=== PATIENT | male | born 1990 | race American Indian/Alaskan Native ===

== ENCOUNTER 2020-11-01 07:50 | Emergency (ER) | payer MEDICAID ==
--- NOTE | 2020-11-01 07:54 | Event Note ---
ED Screening Note Date of service: 11/01/20 Time: 07:53 ED Screening Note: Complains of sudden onset of left lower quadrant pain No stool changes Patient appears very uncomfortable No fever noted This initial assessment/diagnostic orders/clinical plan/treatment(s) is/are subject to change based on patients health status, clinical progression and re- assessment by fellow clinical providers in the ED. Further treatment and workup at subsequent clinical providers discretion. Patient/guardian urged not to elope from the ED as their condition may be serious if not clinically assessed and managed. Initial orders include: Labs CT
[2020-11-01] MEDS ORDERED: HYDROmorphone 1 MG/1 ML INJ IV ONE (08:02)
[2020-11-01] MEDS ORDERED: ONDANSETRON 4 MG/2 ML INJ IV ONE (08:02)
[2020-11-01] MEDS ORDERED: LACTATED RINGERS 1,000 ML IV ONE (08:02)
--- NOTE | 2020-11-01 08:02 | Emergency Department Report ---
ED General Adult HPI - General Chief complaint: Abdominal Pain Stated complaint: ABD PAINS PUI?: No Time Seen by Provider: 11/01/20 07:52 Source: patient, RN notes reviewed Mode of arrival: Ambulatory Limitations: No Limitations - History of Present Illness Initial comments: During the history and physical examination, I am chaperoned by nurse Laura Escobar The patient is a 29-year-old gentleman, with a body mass index of 48. The patient presents to the ER with complaints of left lower quadrant and left flank abdominal pain. He has never had pain like this before. He denies headache, neck pain, chest pain, shortness of breath, vomiting, urinary symptoms. He is not having testicular pain. He has never had a kidney stone before that he is aware of. His pain was improved with hydromorphone. The patient does admits to receptive anal intercourse, with male partners. -: Gradual, hour(s) Location: abdomen Radiation: abdomen Quality: aching Consistency: constant Improves with: medication Worsens with: movement - Related Data Allergies Allergy/AdvReac Type Severity Reaction Status Date / Time No Known Allergies Allergy Unverified 11/01/20 07:51 ED Review of Systems ROS: Stated complaint: ABD PAINS Other details as noted in HPI Constitutional: denies: fever Eyes: denies: eye discharge ENT: denies: epistaxis Respiratory: denies: cough Cardiovascular: denies: chest pain Gastrointestinal: abdominal pain Genitourinary: denies: testicular pain Musculoskeletal: back pain Neurological: weakness Psychiatric: anxiety Hematological/Lymphatic: denies: easy bleeding ED Past Medical Hx - Past Medical History Previous Medical History?: No - Surgical History Past Surgical History?: No - Social History Smoking Status: Never Smoker Substance Use Type: None ED Physical Exam - General Limitations: No Limitations General appearance: alert, anxious, in distress, obese - Head Head exam: Present: atraumatic, normocephalic - Eye Eye exam: Present: normal appearance, EOMI. Absent: nystagmus - ENT ENT exam: Present: normal exam, normal orophraynx, mucous membranes moist, normal external ear exam - Neck Neck exam: Present: normal inspection, full ROM. Absent: tenderness, meningismus - Respiratory Respiratory exam: Present: normal lung sounds bilaterally. Absent: respiratory distress, wheezes, rales, rhonchi, stridor, decreased breath sounds - Cardiovascular Cardiovascular Exam: Present: regular rate, normal rhythm, normal heart sounds. Absent: bradycardia, tachycardia, irregular rhythm, systolic murmur, diastolic murmur, rubs, gallop - GI/Abdominal GI/Abdominal exam: Present: soft, tenderness (Left lower quadrant tenderness to deep palpation). Absent: distended, guarding, rebound, rigid, pulsatile mass - Rectal Rectal exam: Present: deferred - exam: Present: normal inspection, testicular tenderness (There is left-sided testicular tenderness. There is normal testicular lie.), other (Chaperoned by nurse Laura Escobar) - Extremities Exam Extremities exam: Present: normal inspection, full ROM, other (2+ pulses noted in the bilateral upper and lower extremities. There is no palpable cord. negative Homans sign. Muscular compartments are soft. The pelvis is stable.). Absent: pedal edema, calf tenderness - Back Exam Back exam: Present: normal inspection, full ROM. Absent: tenderness, CVA tenderness (R), CVA tenderness (L), paraspinal tenderness, vertebral tenderness - Neurological Exam Neurological exam: Present: alert, oriented X3, normal gait, other (No facial droop. Tongue midline. Extraocular movements intact bilaterally. Facial sensation intact to light touch in V1, V2, V3 distribution bilaterally. 5 and a 5 strength in 4 extremities. Sensation intact to light touch in 4 extremities.). Absent: motor sensory deficit - Psychiatric Psychiatric exam: Present: anxious - Skin Skin exam: Present: warm, dry, intact, normal color. Absent: rash ED Course Vital Signs 11/01/20 11/01/20 11/01/20 07:51 08:01 08:16 Temperature 97.8 F Pulse Rate 81 79 Respiratory 26 H 24 Rate Blood Pressure 116/89 132/78 Blood Pressure [Right] O2 Sat by Pulse 99 100 100 Oximetry 11/01/20 11/01/20 11/01/20 08:28 08:30 08:46 Temperature Pulse Rate 79 91 H 105 H Respiratory 24 16 25 H Rate Blood Pressure 132/78 115/47 Blood Pressure 132/78 [Right] O2 Sat by Pulse 96 98 96 Oximetry 11/01/20 11/01/20 11/01/20 09:00 09:16 09:30 Temperature Pulse Rate Respiratory Rate Blood Pressure 120/60 120/60 115/47 Blood Pressure [Right] O2 Sat by Pulse 100 98 99 Oximetry 11/01/20 11/01/20 11/01/20 09:46 10:00 10:18 Temperature Pulse Rate Respiratory Rate Blood Pressure 115/47 126/58 126/58 Blood Pressure [Right] O2 Sat by Pulse 99 100 Oximetry 11/01/20 11/01/20 11/01/20 10:30 10:46 11:00 Temperature Pulse Rate 64 Respiratory 18 Rate Blood Pressure 126/58 126/58 126/58 Blood Pressure [Right] O2 Sat by Pulse 99 100 100 Oximetry 11/01/20 11/01/20 11/01/20 11:16 11:30 11:37 Temperature Pulse Rate 69 Respiratory 18 Rate Blood Pressure 126/58 102/48 Blood Pressure [Right] O2 Sat by Pulse 100 99 Oximetry - Reevaluation(s) Reevaluation #1: 11/01/20 09:09 Differential diagnosis, including but not limited to: Renal colic, urinary tract infection, orchitis, epididymitis, testicular torsion, hernia, musculoskeletal groin pain Assessment and plan: 29-year-old gentleman, body mass index of 48, with left lower quadrant abdominal pain, testicular tenderness, endorses receptive anal intercourse. [place] improved with hydromorphone. CT scan of the abdomen pelvis shows no acute findings. Laboratory studies reviewed and are appreciated; transaminitis is asymptomatic, I suspect that this is secondary to fatty liver disease. Urinalysis pending, testicular ultrasound pending. Reassess after initial data points. Have discussed this plan of care with the patient. He verbalized understanding. He is amenable to this plan of care. 11/01/20 10:44 Patient is reassessed multiple times. His pain is dissipated and resolved. He has no abdominal pain or tenderness at this time. He denies testicular pain at this time. Additional history obtained from patient. He reports that last year while in [place], he developed testicular pain and swelling, secondary to "holding my urine, and a possible urine infection." He also reports unintentional weight gain, secondary to being stationary secondary to Covid. He is now living in [place], through January, and will be working with [employer]. He reports reliability to follow-up with an outpatient primary care doctor. He also reports that he is motivated to discontinue alcohol consumption, although he does not drink that much, and he also reports that he is feeling motivated to lose weight. He states all of his pain and discomfort is resolved at this time, and he endorses readiness for discharge. Return precautions are reviewed. Patient has articulated understanding. All questions answered. ED Medical Decision Making - Lab Data Result diagrams: 11/01/20 07:57 11/01/20 07:57 Vital Signs 11/01/20 11/01/20 11/01/20 07:51 08:01 08:16 Temperature 97.8 F Pulse Rate 81 79 Respiratory 26 H 24 Rate Blood Pressure 116/89 132/78 Blood Pressure [Right] O2 Sat by Pulse 99 100 100 Oximetry 11/01/20 08:28 Temperature Pulse Rate 79 Respiratory 24 Rate Blood Pressure Blood Pressure 132/78 [Right] O2 Sat by Pulse 96 Oximetry Lab Results 11/01/20 11/01/20 Range/Units 07:57 07:57 WBC 6.2 (4.5-11.0) K/mm3 RBC 4.84 (3.65-5.03) M/mm3 Hgb 14.5 (11.8-15.2) gm/dl Hct 42.6 (35.5-45.6) % MCV 88 (84-94) fl MCH 30 (28-32) pg MCHC 34 (32-34) % RDW 13.4 (13.2-15.2) % Plt Count 343 (140-440) K/mm3 Lymph % (Auto) 34.9 (13.4-35.0) % [place] % (Auto) 9.9 H (0.0-7.3) % Eos % (Auto) 1.3 (0.0-4.3) % Baso % (Auto) 0.9 (0.0-1.8) % Lymph # (Auto) 2.2 (1.2-5.4) K/mm3 Warrick # (Auto) 0.6 (0.0-0.8) K/mm3 Eos # (Auto) 0.1 (0.0-0.4) K/mm3 Baso # (Auto) 0.1 (0.0-0.1) K/mm3 Seg Neutrophils % 53.0 (40.0-70.0) % Seg Neutrophils # 3.3 (1.8-7.7) K/mm3 Sodium 139 (137-145) mmol/L Potassium 4.0 (3.6-5.0) mmol/L Chloride 103.3 (98-107) mmol/L Carbon Dioxide 24 (22-30) mmol/L Anion Gap 16 mmol/L BUN 13 (9-20) mg/dL Creatinine 0.7 L (0.8-1.3) mg/dL Estimated GFR > 60 ml/min BUN/Creatinine Ratio 19 % Glucose 110 H (75-100) mg/dL Calcium 9.0 (8.4-10.2) mg/dL Magnesium 2.00 (1.7-2.3) mg/dL Total Bilirubin 0.40 (0.1-1.2) mg/dL AST 71 H (5-40) units/L ALT 63 H (7-56) units/L Alkaline Phosphatase 87 (35-129) units/L Total Creatine Kinase 392 H (55-170) units/L Total Protein 7.1 (6.3-8.2) g/dL Albumin 4.0 (3.9-5) g/dL Albumin/Globulin Ratio 1.3 % Lipase 25 (13-60) units/L - Radiology Data Radiology results: pending, report reviewed, image reviewed CT ABDOMEN AND PELVIS WITHOUT CONTRAST HISTORY: Left lower quadrant pain. COMPARISON: None TECHNIQUE: Routine abdominal and pelvic CT exam performed without contrast. Lack of intravenous contrast limits evaluation of the vascular and solid organs.. All CT scans at this location are performed using CT dose reduction for ALARA by means of automated exposure control. FINDINGS: CT ABDOMEN: Lung Bases: No significant abnormality. Liver: No significant abnormality. Biliary: No significant abnormality. Spleen: No significant abnormality. Unenlarged. Pancreas: No significant abnormality. Adrenals: No significant abnormality. Kidneys: No significant abnormality. Lymphatics: No lymphadenopathy. Vasculature: No significant abnormality. Bowel/Peritoneum: No significant abnormality. No free air. No free fluid. Normal appendix. CT PELV IC: : No significant abnormality. Lymphatics: No lymphadenopathy. Osseous Structures: No aggressive appearing osseous lesions. Additional Findings: None IMPRESSION: 1. No significant abnormality. Signer Name: Antonio Merritt MD Signed: 11/01/2020 7:48 AM Workstation Name: [id number] ULTRASOUND SCROTUM INDICATION / CLINICAL INFORMATION: left testicle pain. COMPARISON: None available. FINDINGS -- RIGHT: TESTIS: Size = 3.7 x 1.8 x 3.1 cm. - Appearance: No significant abnormality. - Cyst / Mass: None. - Color Doppler Flow: No significant abnormality. EPIDIDYMIS: No significant abnormali ty. HYDROCELE: None VARICOCELE: None demonstrated. FINDINGS -- LEFT: TESTIS: Size = 3.7 x 1.8 x 2.4 cm. - Appearance: No significant abnormality. - Cyst / Mass: None. - Color Doppler Flow: No significant abnormality. EPIDIDYMIS: No significant abnormality. HYDROCELE: None VARICOCELE: None demonstrated. ADDITIONAL FINDINGS: None. IMPRESSION: 1. No intratesticular mass or torsion. Signer Name: Donnie AlexanderDO Signed: 11/01/2020 9:20 AM Workstation Name: [id number] Critical care attestation.: If time is entered above; I have spent that time in minutes in the direct care of this critically ill patient, excluding procedure time. ED Disposition Clinical Impression: Left lower quadrant abdominal pain, Body mass index exceeds 40, Elevated liver function tests, Testicular pain, left Disposition: DC- TO HOME OR SELFCARE Is pt being admited?: No Does the pt Need Aspirin: No Condition: Good Instructions: Alcoholic Liver Disease, [id number], Abdominal Pain, Adult Additional Instructions: Recommend that patient lose weight aggressively, participate in physical activities as tolerated. Avoid consumption of alcohol, tobacco, smoke products, and minimize consumption of heavy and spicy foods. Drink 6 cups of water per day indefinitely, and consume fiber, vegetables, lean protein. Please follow-up with your primary care doctor within the next 5 to 7 days for repeat checkup and evaluation. Patient may take ibuprofen [id number], 400 mg by mouth, with food, every 6 hours as needed for pain, alternating with Tylenol/acetaminophen, 650 mg by mouth, every 4-6 hours as needed for pain, maximum daily dose should not exceed 3 g per 24 hours. Please have a primary care doctor contact medical records department to obtain copies of laboratory studies and radiology studies. [facility] is a local medical clinic. Dr. Choco Stone is a local primary care doctor. Please return to the emergency room right away with new pain, worsened pain, migration of pain, projectile vomiting, change in mental status, confusion, inability to tolerate liquid feeds, new, worsened or different symptoms not present on the initial emergency room evaluation. Referrals: DANTE STONE MD [Staff Physician] - 3-5 Days [facility] [Provider Group] - 3-5 Days Forms: Work/School Release Form(ED)
[2020-11-01 08:29] LABS: Basophils # (Auto) 0.1 K/mm3 (0.0-0.1); Basophils % (Auto) 0.9 % (0.0-1.8); Eosinophils # (Auto) 0.1 K/mm3 (0.0-0.4); Eosinophils % (Auto) 1.3 % (0.0-4.3); Hematocrit 42.6 % (35.5-45.6); Hemoglobin 14.5 gm/dl (11.8-15.2); Lymphocytes # (Auto) 2.2 K/mm3 (1.2-5.4); Lymphocytes % (Auto) 34.9 % (13.4-35.0); Mean Corpuscular HGB Conc 34 % (32-34); Mean Corpuscular Volume 88 fl (84-94); Monocytes # (Auto) 0.6 K/mm3 (0.0-0.8); Monocytes % (Auto) 9.9 % (0.0-7.3); Platelet Count 343 K/mm3 (140-440); Red Blood Count 4.84 M/mm3 (3.65-5.03); Red Cell Distribution Width 13.4 % (13.2-15.2)
[2020-11-01 08:43] LABS: Alanine Aminotransferase 63 units/L (7-56); Blood Urea Nitrogen 13 mg/dL (9-20); Hemolysis Index 3
[2020-11-01 08:47] LABS: BUN/Creatinine Ratio 19
--- NOTE | 2020-11-01 08:53 | Cat Scan Report ---
CT ABDOMEN AND PELVIS WITHOUT CONTRAST HISTORY: Left lower quadrant pain. COMPARISON: None TECHNIQUE: Routine abdominal and pelvic CT exam performed without contrast. Lack of intravenous cont rast limits evaluation of the vascular and solid organs.. All CT scans at this location are performed using CT dose reduction for ALARA by means of automated exposure control. FINDINGS: CT ABDOMEN: Lung Bases: No significant abnormality. Liver: No significant abnormality. Biliary: No significant abnormality. Spleen: No significant abnormality. Unenlarged. Pancreas: No significant abnormality. Adrenals: No significant abnormality. Kidneys: No significant abnormality. Lymphatics: No lymphadenopathy. Vasculature: No significant abnormality. Bowel/Peritoneum: No significant abnormality. No free air. No free fluid. Normal appendix. CT PELVIC: : No significant abnormality. Lymphatics: No lymphadenopathy. Osseous Structures: No aggressive appearing osseous lesions. Additional Findings: None IMPRESSION: 1. No significant abnormality. Signer Name: Antonio Merritt MD Signed: 11/01/2020 8:48 AM Workstation Name: [id number]
[2020-11-01 09:36] LABS: Bilirubin,Urine NEG (Negative); Blood,Urine SM (Negative); Color,Urine Yellow (Yellow); Mucus,Urine FEW /HPF; Protein,Urine <15 mg/dL mg/dL (Negative)
--- NOTE | 2020-11-01 10:24 | Ultrasound Report ---
ULTRASOUND SCROTUM INDICATION / CLINICAL INFORMATION: left testicle pain. COMPARISON: None available. FINDINGS -- RIGHT: TESTIS: Size = 3.7 x 1.8 x 3.1 cm. - Appearance: No significant abnormality. - Cyst / Mass: None. - Color Doppler Flow: No significant abnormality. EPIDIDYMIS: No significant abnormality. HYDROCELE: None VARICOCELE: None demonstrated. FINDINGS -- LEFT: TESTIS: Size = 3.7 x 1.8 x 2.4 cm. - Appearance: No significant abnormality. - Cyst / Mass: None. - Color Doppler Flow: No significant abnormality. EPIDIDYMIS: No significant abnormality. HYDROCELE: None VARICOCELE: None demonstrated. ADDITIONAL FINDINGS: None. IMPRESSION: 1. No intratesticular mass or torsion. Signer Name: Donnie Alexander DO Signed: 11/01/2020 10:20 AM Workstation Name: [id number]
[2020-11-01 11:38] VITALS: BP 102/48
== END 2020-11-01 11:39 | disposition home or self-care (01) ==
LOC: ED 07:50
DX: R10.32 Left lower quadrant pain (principal); N50.812 Left testicular pain
CPT/HCPCS: 36415; 74176; 80053; 81001; 82550; 83690; 83735; 85025; 87086; 87591; 93975; 96361; 96374; 96375; 99284; J1170; J2405; J7120